=== PATIENT | female | born 1945 ===

== ENCOUNTER 2017-08-23 08:29 | Emergency (ER) | payer MEDICARE, OTHER ==
[2017-08-23] MEDS ORDERED: NS(*) 0.9% 1000 ML BAG 1,000 ML IV ONE ×2 (08:39)
[2017-08-23] MEDS ORDERED: ONDANSETRON 4 MG/2 ML VIAL IVP ONE (08:40)
--- NOTE | 2017-08-23 08:42 | ER Report ---
History and Physical Time Seen By MD: 08:35 Hx. of Stated Complaint: PATIENT REPORTS THAT SHE HAS HAD A HEADACHE AND NAUSEA SINCE COMING TO HIGHER ELEVATIONS. PATIENT REPORTS DIARRHEA AND LOSS OF APPETITE HPI/ROS CHIEF COMPLAINT: Vomiting HISTORY OF PRESENT ILLNESS: 72-year-old female comes emergency Department today with complaint of vomiting she denies chest pain shortness of breath she denies abdominal pain has no diarrhea patient states that she returned from a trip on Monday where she felt that she was very dehydrated subsequently since Monday she 's been able to not tolerate by mouth liquids or solids without vomiting she has a single surgical history of a appendix removal otherwise no additional surgical history noted. Patient denies shortness of breath she denies any chest pain she denies any abdominal pain said the last and she vomited was several hours prior to presentation when she ate some oatmeal patient has no additional complaints at this time REVIEW OF SYSTEMS: Respiratory: No cough, no dyspnea. Cardiovascular: No chest pain, no palpitations. Gastrointestinal: Vomiting no abdominal pain Musculoskeletal: No back pain. Remainder of the 14 system rev: Yes Allergies: Coded Allergies: codeine (Verified Allergy, Severe, 08/23/17) Home Meds Reported Medications Lisinopril (LISINOPRIL) 40 Mg Tablet, 40 MG PO QDAY, TAB 08/23/17 Metoprolol Succinate (METOPROLOL SUCCINATE) 50 Mg Tab.er.24h, 3 TAB PO QDAY, TAB 08/23/17 Dabigatran Etexilate Mesylate (PRADAXA) 150 Mg Capsule, 150 MG PO, CAPSULE 08/23/17 Simvastatin (SIMVASTATIN) 20 Mg Tablet, 20 MG PO HS, TAB 08/23/17 Reviewed Nurses Notes: Yes Old Medical Records Reviewed: Yes Constitutional Vital Sign - Last 24 Hours 08/23/17 08/23/17 08/23/17 08/23/17 08:32 08:35 08:36 08:59 Temp 98.6 Pulse 112 Resp 20 B/P (MAP) 188/136 202/137 (158) 188/136 (153) Pulse Ox 90 93 O2 Delivery Room Air 08/23/17 09:05 B/P (MAP) 166/120 (135) Intake and Output 08/23/17 08/23/17 08/24/17 15:00 23:00 07:00 Intake Total 1000 ml Balance 1000 ml Physical Exam General Appearance: [The patient is alert, has no immediate need for airway protection and no current signs of toxicity.] [ ] Eyes: Pupils equal and round no injection. Respiratory: Chest is non tender, lungs are clear to auscultation. Cardiac: regular rate and rhythm [ ] Gastrointestinal: Abdomen is soft and non tender, no masses, bowel sounds normal. Musculoskeletal: Neck: Neck is supple and non tender. Extremities have full range of motion and are non tender. Skin: No rashes or lesions. [ ] DIFFERENTIAL DIAGNOSIS: After history and physical exam differential diagnosis was considered for enteritis gastroenteritis colitis diverticulitis dehydration Medical Decision Making Data Points Result Diagram: 08/23/17 0850 08/23/17 0850 Laboratory Hematology Test 08/23/17 08:35 08/23/17 08:50 Urine Color Straw Urine Clarity Clear Urine pH 7.0 pH (4.8-9.5) Urine Specific [place] 1.001 Urine Protein Negative mg/dL (NEGATIVE) Urine Glucose (UA) Negative mg/dL (NEGATIVE) Urine Ketones Negative mg/dL (NEGATIVE) Urine Blood Moderate (NEGATIVE) Urine Nitrite Negative (NEGATIVE) Urine Bilirubin Negative (NEGATIVE) Urine Urobilinogen Negative mg/dL (0.2-1.9) Urine Leukocyte Esterase Negative (NEGATIVE) Urine RBC <1 /HPF (0-2/HPF) Urine WBC <1 /HPF (0-5/HPF) Urine Squamous Epithelial Cells Moderate /LPF (</=FEW) Urine Bacteria Negative /HPF (NONE-FEW) Urine Mucus None /HPF (NONE-FEW) Red Blood Count 6.05 M/uL (4.17-5.56) Mean Corpuscular Volume 86.3 fL (80.0-96.0) Mean Corpuscular Hemoglobin 30.0 pg (26.0-33.0) Mean Corpuscular Hemoglobin Concent 34.8 g/dL (32.0-36.0) Red Cell Distribution Width 13.7 % (11.5-14.5) Mean Platelet Volume 8.8 fL (7.2-11.1) Neutrophils (%) (Auto) 76.8 % (39.4-72.5) Lymphocytes (%) (Auto) 14.4 % (17.6-49.6) Monocytes (%) (Auto) 7.6 % (4.1-12.4) Eosinophils (%) (Auto) 0.3 % (0.4-6.7) Basophils (%) (Auto) 0.9 % (0.3-1.4) Nucleated RBC Relative Count (auto) 0.0 /100WBC Neutrophils # (Auto) 7.4 K/uL (2.0-7.4) Lymphocytes # (Auto) 1.4 K/uL (1.3-3.6) Monocytes # (Auto) 0.7 K/uL (0.3-1.0) Eosinophils # (Auto) 0.0 K/uL (0.0-0.5) Basophils # (Auto) 0.1 K/uL (0.0-0.1) Nucleated RBC Absolute Count (auto) 0.00 K/uL Sodium Level 137 mmol/L (137-145) Potassium Level 3.6 mmol/L (3.5-5.0) Chloride Level 95 mmol/L (98-107) Carbon Dioxide Level 29 mmol/L (22-31) Blood Urea Nitrogen 6 mg/dl (7-18) Creatinine 0.70 mg/dl (0.52-1.04) Glomerular Filtration Rate Calc > 60.0 Random Glucose 126 mg/dl (75-110) Calcium Level 10.1 mg/dl (8.4-10.2) Total Bilirubin 1.2 mg/dl (0.2-1.3) Aspartate Amino Transf (AST/SGOT) 38 U/L (0-35) Alanine Aminotransferase (ALT/SGPT) 39 U/L (0-56) Alkaline Phosphatase 103 U/L (0-126) Total Protein 8.2 g/dl (6.3-8.2) Albumin 4.6 g/dl (3.5-5.0) Lipase 94 U/L (23-300) Chemistry Test 08/23/17 08:35 08/23/17 08:50 Urine Color Straw Urine Clarity Clear Urine pH 7.0 pH (4.8-9.5) Urine Specific [place] 1.001 Urine Protein Negative mg/dL (NEGATIVE) Urine Glucose (UA) Negative mg/dL (NEGATIVE) Urine Ketones Negative mg/dL (NEGATIVE) Urine Blood Moderate (NEGATIVE) Urine Nitrite Negative (NEGATIVE) Urine Bilirubin Negative (NEGATIVE) Urine Urobilinogen Negative mg/dL (0.2-1.9) Urine Leukocyte Esterase Negative (NEGATIVE) Urine RBC <1 /HPF (0-2/HPF) Urine WBC <1 /HPF (0-5/HPF) Urine Squamous Epithelial Cells Moderate /LPF (</=FEW) Urine Bacteria Negative /HPF (NONE-FEW) Urine Mucus None /HPF (NONE-FEW) White Blood Count 9.7 k/uL (4.5-11.0) Red Blood Count 6.05 M/uL (4.17-5.56) Hemoglobin 18.2 g/dL (12.0-16.0) Hematocrit 52.2 % (34.0-47.0) Mean Corpuscular Volume 86.3 fL (80.0-96.0) Mean Corpuscular Hemoglobin 30.0 pg (26.0-33.0) Mean Corpuscular Hemoglobin Concent 34.8 g/dL (32.0-36.0) Red Cell Distribution Width 13.7 % (11.5-14.5) Platelet Count 236 K/uL (150-450) Mean Platelet Volume 8.8 fL (7.2-11.1) Neutrophils (%) (Auto) 76.8 % (39.4-72.5) Lymphocytes (%) (Auto) 14.4 % (17.6-49.6) Monocytes (%) (Auto) 7.6 % (4.1-12.4) Eosinophils (%) (Auto) 0.3 % (0.4-6.7) Basophils (%) (Auto) 0.9 % (0.3-1.4) Nucleated RBC Relative Count (auto) 0.0 /100WBC Neutrophils # (Auto) 7.4 K/uL (2.0-7.4) Lymphocytes # (Auto) 1.4 K/uL (1.3-3.6) Monocytes # (Auto) 0.7 K/uL (0.3-1.0) Eosinophils # (Auto) 0.0 K/uL (0.0-0.5) Basophils # (Auto) 0.1 K/uL (0.0-0.1) Nucleated RBC Absolute Count (auto) 0.00 K/uL Glomerular Filtration Rate Calc > 60.0 Calcium Level 10.1 mg/dl (8.4-10.2) Total Bilirubin 1.2 mg/dl (0.2-1.3) Aspartate Amino Transf (AST/SGOT) 38 U/L (0-35) Alanine Aminotransferase (ALT/SGPT) 39 U/L (0-56) Alkaline Phosphatase 103 U/L (0-126) Total Protein 8.2 g/dl (6.3-8.2) Albumin 4.6 g/dl (3.5-5.0) Lipase 94 U/L (23-300) Urinalysis Test 08/23/17 08:35 Urine Color Straw Urine Clarity Clear Urine pH 7.0 pH (4.8-9.5) Urine Specific [place] 1.001 Urine Protein Negative mg/dL (NEGATIVE) Urine Glucose (UA) Negative mg/dL (NEGATIVE) Urine Ketones Negative mg/dL (NEGATIVE) Urine Blood Moderate (NEGATIVE) Urine Nitrite Negative (NEGATIVE) Urine Bilirubin Negative (NEGATIVE) Urine Urobilinogen Negative mg/dL (0.2-1.9) Urine Leukocyte Esterase Negative (NEGATIVE) Urine RBC <1 /HPF (0-2/HPF) Urine WBC <1 /HPF (0-5/HPF) Urine Squamous Epithelial Cells Moderate /LPF (</=FEW) Urine Bacteria Negative /HPF (NONE-FEW) Urine Mucus None /HPF (NONE-FEW) ED Course/Re-evaluation ED Course ED clinical course medical decision making 72-year-old female presented with 2 days of persistent vomiting x-ray was questionable for a possibly early small bowel obstruction versus straight up enteritis follow-up CT recommended this was performed evaluated read by radiology showed no acute abnormalities some hazing within the liver recommending outpatient MRI this a be informed to the patient she had some uterine fibroid noting with what was referred to as pelvic congestion syndrome none of which is related to her current presenting pathology. Rest of the workup and evaluation consistent with enteritis versus gastroenteritis most likely gastric fluid levels were noted within the stomach she was resuscitated with fluid in the emergency department base and let her performed showed hemoconcentration slight bump in her bilirubin consistent with the questionable imaging modality of the liver patient resting comfortably at time of discharge (antiemetics and primary care follow-up Decision to Disposition Date: Aug 23, 2017 Decision to Disposition Time: 10:27 Depart Departure Latest Vital Signs Vital Signs Date Time Temp Pulse Resp B/P (MAP) Pulse Ox O2 Delivery O2 Flow Rate FiO2 08/23/17 09:05 166/120 (135) 7/4/18 08:59 93 08/23/17 08:32 98.6 112 20 Room Air Impression: Primary Impression: Gastroenteritis Condition: Improved Disposition: HOME OR SELF-CARE Referrals: GRISELDA AUSTIN MD 5 Days New Scripts Ondansetron (ZOFRAN ODT) 4 Mg Tab.rapdis 4 MG PO Q6H Y for NAUSEA/VOMITING, #20 TAB 0 Refills TAKE 1 TABLET BY MOUTH EVERY 12 HOURS Prov: PAULETTE LOPEZ MD 08/23/17 Patient Instructions: Gastroenteritis (DC) PAULETTE LOPEZ MD Aug 23, 2017 08:42
[2017-08-23 08:59] LABS: PLATELET COUNT, AUTOMATED 236 K/uL (150-450)
[2017-08-23] MEDS ORDERED: LISI-374 PO (09:10)
[2017-08-23] MEDS ORDERED: SIMV-49 PO (09:10)
[2017-08-23] MEDS ORDERED: DABI150C3 PO (09:10)
[2017-08-23] MEDS ORDERED: METO50TA19 PO (09:10)
--- NOTE | 2017-08-23 09:23 | RADIOLOGY IMAGING REPORT ---
FACILITY: [facility] [place] PATIENT NAME: Ibis Jefferson : 1945 MR: [id number] V: [id number] EXAM DATE: ORDERING PHYSICIAN: PAULETTE LOPEZ TECHNOLOGIST: Location: [facility] Patient: Ibis Jefferson : 1945 Visit/Account:[id number] Date of Sevice: 08/23/2017 EXAMINATION: Abdominal radiograph single view/KUB HISTORY: Vomiting. COMPARISON: None. FINDINGS: 2 AP supine views of the abdomen are obtained. Lines/tubes: None. Bowel gas pattern: Bowel gas is present in nondistended loops of colon and the stomach. There is a r elative paucity of small bowel gas. Soft tissues: Negative. Bony structures: Negative. Visualized lung bases: Negative. IMPRESSION: Relative paucity of small bowel gas. This could indicate fluid-filled small bowel loops from enteriti s or partial small bowel obstruction. No evidence of colonic obstruction. Report Dictated By: Gillian Craig MD at 08/23/2017 9:17 AM Report E-Signed By: Gillian Craig MD at 08/23/2017 9:19 AM WSN:[id number]
--- NOTE | 2017-08-23 10:19 | RADIOLOGY IMAGING REPORT ---
FACILITY: [facility] PATIENT NAME: Ibis Jefferson : 1945 MR: [id number] V: [id number] EXAM DATE: ORDERING PHYSICIAN: PAULETTE LOPEZ TECHNOLOGIST: Location: [facility] Patient: Ibis Jefferson : 1945 Visit/Account:[id number] Date of Sevice: 08/23/2017 CT abdomen and pelvis with IV contrast Indication: Abdominal pain. Evaluate for small bowel obstruction. Comparison: None available. . Technique: Axial CT images were obtained through the abdomen and pelvis during injection of nonioni c iodinated intravenous contrast. Reformatted coronal and sagittal images were also obtained. One of the following dose optimization techniques was utilized in the performance of this exam: Autom ated exposure control; adjustment of the mA and/or kV according to the patient's size; or use of an i terative reconstruction technique. Specific details can be referenced in the facility's radiology C T exam operational policy. Contrast: 75 ml of Isovue-370 IV contrast. Findings: Lower lung parks: Lung bases are clear. Liver: The superior right lobe liver does show a faint 1.2 cm hypodensity. The liver shows no other f ocal abnormality. Biliary: Gallbladder appears unremarkable as well as the intra and extra hepatic biliary system. Pancreas: Normal appearance. Spleen: Normal appearance. Adrenal glands: Unremarkable. Kidneys / retroperitoneum: No evidence of nephrolithiasis or hydronephrosis. No focal abnormality. Bowel / peritoneum / mesenteries: There are couple diverticula seen along the sigmoid colon without p ericolonic inflammation. The colon shows no other focal abnormality. Status post appendectomy. Small bowel shows no focal abnormality or obstruction. Stomach is unremarkable. No free air, free fluid, fluid collections or areas of inflammation. Small umbilical hernia containin g fat. Lymph node assessment: No pathologic adenopathy identified. Pelvic structures: The uterus is heterogeneous show some mild lobulated contour in the superior le ft aspect. No well-defined focal abnormality. The ovaries are within normal limits. The urinary bladd er is decompressed and grossly normal. The remaining pelvic structures visualized within normal limit s. There are prominent pelvic vessels present which are patent. Vessels: No significant atherosclerotic calcifications seen throughout a nonaneurysmal abdominal aort a and branches. Musculoskeletal / Body wall: No acute or aggressive osseous abnormality. Bilateral pars defect at the L5 level causing mild anterior spondylolisthesis of L5 over S1 of 4.4 mm. Mild degenerative changes of the spine. IMPRESSION: 1. No acute intra-abdominal abnormality. No bowel obstruction. 2. Sigmoid diverticulosis without radiographic indication diverticulitis. 3. The pelvis does show increased vasculature around the uterus. This nonspecific but could be due to pelvic congestion syndrome. 4. Mild heterogeneity uterus with mild lobulation the superior left aspect. This could be due to poor ly visualized fibroids. 5. Faint hypodensity in the superior right lobe liver. This is nonspecific. This may represent a robert gn lesion such as atypical hemangioma. However a follow-up nonemergent MRI of the liver, without and with contrast, can further evaluate for other lesions. 6. Bilateral pars defect at the L5 level causing mild anterior spinal listhesis of L5 over S1. Report Dictated By: German Leary at 08/23/2017 10:07 AM Report E-Signed By: German Leary at 08/23/2017 10:17 AM WSN:[id number]
[2017-08-23] MEDS ORDERED: ONDA4TAB PO (10:28)
[2017-08-23 11:00] VITALS: BP 166/118
[2017-08-23] MEDS ORDERED: IOPAMIDOL 76% 75 ML INFUS BTL 75 ML ONE (12:22)
== END 2017-08-23 11:07 | disposition home or self-care (01) ==
LOC: ER 08:32
DX: K52.9 Noninfective gastroenteritis and colitis, unspecified (principal)
CPT/HCPCS: 74018; 74177; 81001; 83690; 85025; 96361; 96374; 99284; J2405; J7030; Q9967; 82040; 82247; 82310; 82374; 82435; 82565; 82947; 84075; 84132; 84155; 84295; 84450; 84460; 84520

== ENCOUNTER → 2017-09-06 | Outpatient (CLI) | payer MEDICARE, OTHER ==
[~2017-09-06] MED LIST: DABI150C3 PO; GADOBENATE 529MG/1ML 15ML VIAL IVP ONE; LISI-374 PO; METO50TA19 PO; NS 0.9% 20 ML SDV 40 ML ONE; ONDA4TAB PO; SIMV-49 PO
--- NOTE | 2017-09-06 15:35 | RADIOLOGY IMAGING REPORT ---
FACILITY: [facility] PATIENT NAME: Ibis Jefferson : 1945 MR: [id number] V: [id number] EXAM DATE: ORDERING PHYSICIAN: MARIAH GROSS TECHNOLOGIST: Location: [facility] Patient: Ibis Jefferson : 1945 Visit/Account:[id number] Date of Sevice: 09/06/2017 EXAMINATION: MRI abdomen without IV contrast MRI abdomen with IV contrast 09/06/2017 8:00 AM HISTORY: Hypodense mass in the liver. TECHNIQUE: Multiplanar multisequence imaging was done before and after intravenous contrast administr ation. Contrast: 15 mL of IV MultiHance COMPARISON STUDIES: CT 08/23/2017 FINDINGS: Liver / biliary: Finding in segment 7 in the right lobe on the CT is not discretely evident on any of the precontrast images. Following contrast it is not easy to appreciate on the arterial phase image s but is an irregular hypoenhancing area on the other postcontrast sequences, initially measuring abo ut 1.3 x 0.8 cm. By the more delayed imaging. Is slightly hyperenhancing to adjacent liver. There is no definite peripheral puddling fill-in pattern although lesion potentially fills in over the seri al immediate phases. This is not evident with diffusion-weighted imaging. No other significant foca l liver lesion. No biliary finding. Pancreas: negative Spleen: Incidental small inferior accessory splenule. Adrenal glands: negative Kidneys / retroperitoneum: negative Bowel / peritoneum / mesenteries: negative Vessels: negative Musculoskeletal / Body wall: negative Lymph node assessment: negative Lower chest: negative IMPRESSION: Small hypoenhancing lesion in segment 7 of the right lobe of the liver correlating with t he recent CT finding. This does not have characteristic features of any particular etiology. This i s possibly an atypical hemangioma although does not have the T2 signal features typically associated with that. 3-6 month follow-up MR is recommended. Report Dictated By: Kiet Mendez MD at 09/06/2017 3:15 PM Report E-Signed By: Kiet Mendez MD at 09/06/2017 3:31 PM WSN:[id number]
== END ==
LOC: MRI 00:50
PROVIDERS: ATTEND Internal Medicine
DX: K76.89 Other specified diseases of liver (principal)
CPT/HCPCS: 74183; A9577; J7050